=== PATIENT | female | born 1995 | race African-American/Black ===

== ENCOUNTER 2020-05-23 22:22 | Emergency (ER) | payer OTHER ==
[~2020-05-23] VITALS: Ht 162.6 cm; Wt 86.0 kg
[2020-05-23] MEDS ORDERED: ACETAMINOPHEN 325MG TABLET PO ONE (23:15)
[2020-05-24 01:30] VITALS: BP 120/83
== END 2020-05-24 01:30 | disposition home or self-care (01) ==
LOC: ER 22:22
DX: S09.8XXA Other specified injuries of head, initial encounter (principal); V49.49XA Driver injured in collision with other motor vehicles in traffic accident, initial encounter; Y93.89 Activity, other specified; Y92.89 Other specified places as the place of occurrence of the external cause; Y99.8 Other external cause status; M79.609 Pain in unspecified limb
CPT/HCPCS: 12011; 73562; 81025; 99284

== ENCOUNTER 2020-12-26 18:51 | Emergency (ER) | payer OTHER ==
[~2020-12-26] VITALS: Ht 165.1 cm; Wt 68.0 kg
[2020-12-26 18:54] VITALS: BP 126/88
[2020-12-26] MEDS ORDERED: SODIUM CHLORIDE 0.9% 1,000 ML IV ONE (19:15)
[2020-12-26 21:32] LABS: *AMPHETAMINES SCREEN URINE NEGATIVE (NEGATIVE); *BARBITURATES SCREEN URINE NEGATIVE (NEGATIVE); *COCAINE SCREEN URINE NEGATIVE (NEGATIVE); CANNABINOID URINE SCREEN NEGATIVE (NEGATIVE); METHADONE URINE SCREEN NEGATIVE (NEGATIVE); OPIATES URINE SCREEN NEGATIVE (NEGATIVE)
[2020-12-26 21:33] LABS: *BENZODIAZEPINES SCREEN URINE NEGATIVE (NEGATIVE); PHENCYCLIDINE URINE SCREEN NEGATIVE (NEGATIVE)
== END 2020-12-26 22:34 | disposition home or self-care (01) ==
LOC: ER 18:51
DX: T50.901A Poisoning by unspecified drugs, medicaments and biological substances, accidental (unintentional), initial encounter (principal); R41.0 Disorientation, unspecified; Y92.018 Other place in single-family (private) house as the place of occurrence of the external cause
CPT/HCPCS: 80305; 93005; 96360; 99284; J7030